=== PATIENT | female | born 1990 | race Caucasian/White ===

== ENCOUNTER 2021-11-13 18:54 | Emergency (ER) | payer OTHER, SELFPAY ==
--- NOTE | ~2021-11-13 | XR_ITS ---
EXAMINATION: XR chest 2V DATE: 11/14/2021 01:25 INDICATION: Syncope and dizziness TECHNIQUE: PA and lateral views of the chest were obtained. COMPARISON: Chest radiograph dated 11/01/08 FINDINGS: The lungs remain clear with no focal airspace opacities, pulmonary edema, pleural effusion or pneumot horax. The cardiomediastinal silhouette is normal. Visualized bones and soft tissues are unremarkable . IMPRESSION: 1. No acute cardiopulmonary disease. Reviewed, dictated and finalized at location A.
[2021-11-13 19:01] VITALS: BP 137/91; PULSE 106; RESP 20; TEMP 37.4; O2SAT 100
--- NOTE | 2021-11-13 19:05 | ECG_ITS ---
Measurements Intervals [place] Rate: 103 P: 65 NC: 138 QRS: 5 QRSD: 94 T: 15 QT: 338 QTc: 443 Interpretive Statements SINUS TACHYCARDIA POSSIBLE LEFT ATRIAL ENLARGEMENT [-0.1mV P WAVE IN V1/V2] INCOMPLETE RIGHT BUNDLE BRANCH BLOCK [90+ ms QRS DURATION, TERMINAL R IN V1/V2, 40+ ms S IN I/aVL/V4/V5/V6] NONSPECIFIC T-WAVE ABNORMALITY BORDERLINE ECG ABNORMAL RHYTHM ECG NO PREVIOUS ECG AVAILABLE FOR COMPARISON Electronically Signed On 11-14-2021 14:57:33 CDT by Kevon Watson M.D.
[2021-11-13 19:40] LABS: Basophils Percent Auto 0.7 % (0.2-1.2); Eosinophils Absolute Auto 0.1 K/mm3 (0-0.3); Eosinophils Percent Auto 2.2 % (0-4.4); Hematocrit 43.9 % (37.0-47.0); Hemoglobin 14.9 g/dL (12.0-15.0); Immature Granulocyte Absolute 0.01 K/mm3 (0.00-0.031); Immature Granulocyte Percent A 0.2 % (0-0.5); Lymphocytes Absolute Auto 2.21 K/mm3 (0.9-3.2); Lymphocytes Percent Auto 40.2 % (18.3-44.2); Mean Corpuscular HGB Conc 33.9 g/dl (32-36); Mean Corpuscular Hemoglobin 31.4 pg (26-34); Mean Corpuscular Volume 92.6 fl (80-100); Mean Platelet Volume 9.8 fl (7.4-10.4); Monocytes Absolute Auto 0.5 K/mm3 (0.1-0.6); Monocytes Percent Auto 9.1 % (2.6-8.5); Neutrophils Absolute Auto 2.6 K/mm3 (1.3-6.7); Neutrophils Percent Auto 47.6 % (45.5-73.1); Platelet Count Result 340 k/mm3 (150-375); Red Blood Count 4.74 M/mm3 (4.2-5.4); Red Cell Distribution Width 13.2 % (11.5-14.5); White Blood Count 5.5 K/mm3 (4.5-10.0)
[2021-11-13 19:51] LABS: Alanine Aminotransferase 17 U/L (6-35); Albumin Level 4.9 g/dL (3.5-5.1); Alkaline Phosphatase 62 U/L (38-126); Anion Gap 16 mmol/L (8-16); Aspartate Amino Transferase 22 U/L (14-36); Bilirubin,Total 0.5 mg/dL (0.2-1.3); Blood Urea Nitrogen 11 mg/dL (7-17); Calcium 9.7 mg/dL (8.4-10.2); Carbon Dioxide 25 mmol/L (22-30); Chloride 101 mmol/L (98-107); Estimated CRCL calculation 81 ml/min; Estimated Glomerular Filt Rate > 60; Glucose 99 mg/dL (65-110); Potassium 3.5 mmol/L (3.4-5.0); Sodium 142 mmol/L (137-145)
[2021-11-14] VITALS (13 sets, daily range): BP systolic 117–138; BP diastolic 80–99; PULSE 60–105; RESP 13–37; O2SAT 100
--- NOTE | 2021-11-14 01:04 | ED.DIZZY ---
HPI - Dizziness General Chief Complaint: Syncope <Jerri Cardoza PA-C - Last Filed: 11/14/21 03:23> Stated Complaint: Lightheaded, Heart Pounding <Jerri Cardoza PA-C - Last Filed: 11/14/21 03:23> Time Seen by Provider: 11/14/21 00:58 <Jerri Cardoza PA-C - Last Filed: 11/14/21 03:23> Source: patient <Jerri Cardoza PA-C - Last Filed: 11/14/21 03:23> Mode of arrival: ambulatory <Jerri Cardoza PA-C - Last Filed: 11/14/21 03:23> Limitations: no limitations <Jerri Cardoza PA-C - Last Filed: 11/14/21 03:23> History of Present Illness HPI Narrative: This is a 31 year old female that presents to the ER for a syncopal episode over the weekend. Reports [place] out [place] the [place]. Reports she started to feel like her heart was racing, she had tingling in her hands and felt lightheaded. She was able to lower herself to seated position. She had another similar episode with blood draw in the ED tonight. Does report some shortness of breath. Denies fever, chest pain, lower extremity edema, or recent travel or surgery. <Jerri Cardoza PA-C - Last Filed: 11/14/21 03:23> Review of Systems Review of Systems: CONSTITUTIONAL: Denies fever GASTROINTESTINAL: Denies vomiting NEUROLOGIC: Denies numbness, or weakness. PSYCHIATRIC: Reports anxiety <Jerri Cardoza PA-C - Last Filed: 11/14/21 03:23> All systems reviewed & are unremarkable except as noted in HPI and below <Jerri Cardoza PA-C - Last Filed: 11/14/21 03:23> [facility] Past Medical History Medical History: Medical History (Updated 11/14/21 @ 02:55 by Jerri Cardoza PA-C) History of ADHD History of anxiety <Jerri Cardoza PA-C - Last Filed: 11/14/21 03:23> Social History Social History: Social History (Updated 11/14/21 @ 01:07 by Jerri Cardoza PA-C) Smoking status: Never smoker Alcohol intake: current Substance use: current Substance use type: marijuana <Jerri Cardoza PA-C - Last Filed: 11/14/21 03:23> Exam Narrative: GENERAL: Well-appearing, well-nourished, and in no acute distress. HEAD: Normocephalic, atraumatic. EYES: PERRLA and EOMI. ENT: Nares clear, no rhinorrhea or epistaxis. Mucous membranes moist. Oropharynx without tonsillar hypertrophy exudate or other lesions. Bilateral TMs pearly thomas non-bulging NECK: Supple. No adenopathy or masses. CHEST: Clear to auscultation. No respiratory distress. No wheezes rales or rhonchi HEART: Regular rate and rhythm. No murmur heard. Normal peripheral pulses. EXTREMITIES: Normal range of motion. No edema. SKIN: Warm, dry, no rash. NEURO: No focal deficits. Alert and oriented x3. Cranial nerves II through XII grossly intact PSYCH: Normal mood and affect <Jerri Cardoza PA-C - Last Filed: 11/14/21 03:23> Course STAFF ANTISUBMARINE OFFICER/PA Physician Supervision For this patient encounter, I reviewed the STAFF ANTISUBMARINE OFFICER or PA documentation, treatment plan, and medical decision making <Jamison Everett MD - Last Filed: 11/14/21 03:58> Vital Signs Vital signs: Vital Signs Temperature 99.3 F 11/13/21 19:01 Pulse Rate 106 H 11/13/21 19:01 Respiratory Rate 20 11/13/21 19:01 Blood Pressure 137/91 H 11/13/21 19:01 Pulse Oximetry 100 11/13/21 19:01 Oxygen Delivery Room Air 11/13/21 19:01 Temperature 99.3 F 11/13/21 19:01 Pulse Rate 66 11/14/21 03:16 Respiratory Rate 15 11/14/21 03:16 Blood Pressure 133/88 11/14/21 03:16 Pulse Oximetry 100 11/14/21 03:16 Oxygen Delivery Room Air 11/14/21 02:07 <Jerri Cardoza PA-C - Last Filed: 11/14/21 03:23> Vital Signs Temperature 99.3 F 11/13/21 19:01 Pulse Rate 106 H 10/04/22 19:01 Respiratory Rate 20 11/13/21 19:01 Blood Pressure 137/91 H 11/13/21 19:01 Pulse Oximetry 100 11/13/21 19:01 Oxygen Delivery Room Air 11/13/21 19:01 Temperature 99.3 F 11/13/21 19:01 Pulse Rate 66 11/14/21 03:16 Respiratory Rate 15 11/14/21 03:16 Blood Pressure 133/
[2021-11-14 01:30] LABS: Troponin I < 0.012 ng/mL (0.000-0.034)
[2021-11-14 02:11] LABS: INR 1.2; Prothrombin Time 14.4 Seconds (11.1-14.7)
[2021-11-14 02:12] LABS: Partial Thromboplastin Time 33.9 SECONDS (22.3-36.8)
[2021-11-14 02:14] LABS: D Dimer < 0.27 ug/mL (<0.48)
[2021-11-14] MEDS: SODIUM CHLORIDE 0.9% IV 1,000 ML 999 ML IV CONT (02:37)
--- NOTE | 2021-11-22 08:30 | PC.NURSE ---
LATE ENTRY This note is being entered to document information to the patient's record. The following information was omitted on [11/14/21], by [real mandel] NS infused with zero left container.
== END 2021-11-14 03:46 | disposition home or self-care (01) ==
PROVIDERS: Physician Assistant; Emergency Provider Emergency Medicine
DX: R55 Syncope and collapse (principal)
CPT/HCPCS: 36415; 71046; 80053; 81025; 84484; 85025; 85380; 85610; 85730; 93005; 96360; 99284; J7030

== ENCOUNTER 2022-05-16 12:32 | Outpatient (CLI) | payer OTHER, SELFPAY ==
--- NOTE | ~2022-05-16 | US_ITS ---
US breast BI limited INDICATION: Bilateral breast pain. TECHNIQUE: Dedicated complete bilateral breast ultrasound including all 4 quadrants in the subareolar locations COMPARISON: Ultrasound dated 01/02/2015 FINDINGS: Right breast: At 9:00, 9 cm from the nipple there is a 7 mm cyst. No other suspicious solid or cystic masses are identified in the right breast. Left breast: Normal heterogeneous echotexture without focal solid or cystic mass. IMPRESSION: 1: No suspicious abnormalities in either breast by ultrasound to suggest malignancy. Benign finding. BI-RADS CATEGORY 2 - BENIGN FINDINGS Reviewed, dictated and finalized at location A. IMPRESSION: 1: No suspicious abnormalities in either breast by ultrasound to suggest malign neymar. Benign finding. BI-RADS CATEGORY 2 - BENIGN FINDINGS
== END 2022-05-16 12:33 | disposition home or self-care (01) ==
DX: O92.29 Other disorders of breast associated with pregnancy and the puerperium (principal); Z3A.00 Weeks of gestation of pregnancy not specified
CPT/HCPCS: 76642

== ENCOUNTER 2022-07-01 11:27 | Emergency (ER) | payer OTHER, SELFPAY ==
[2022-07-01] VITALS (30 sets, daily range): BP systolic 74–113; BP diastolic 49–71; PULSE 46–90; RESP 13–26; TEMP 36.4; O2SAT 87–100
--- NOTE | 2022-07-01 11:31 | ECG_ITS ---
Measurements Intervals [place] Rate: 74 P: ME: 0 QRS: 13 QRSD: 93 T: -1 QT: 412 QTc: 459 Interpretive Statements SINUS RHYTHM WITH MARKED SINUS ARRHYTHMIA INCOMPLETE RIGHT BUNDLE BRANCH BLOCK LOW QRS VOLTAGE IN PRECORDIAL LEADS BORDERLINE ECG COMPARED TO ECG 11/13/2021 19:25:25 SINUS RHYTHM NOW PRESENT Electronically Signed On 07-01-2022 11:38:06 CDT by Desmond oWodruff D.O.
[2022-07-01 11:46] LABS: Basophils Percent Auto 0.4 % (0.2-1.2); Eosinophils Absolute Auto 0.1 K/mm3 (0-0.3); Eosinophils Percent Auto 1.8 % (0-4.4); Hemoglobin 10.9 g/dL (12.0-15.0); Immature Granulocyte Absolute 0.01 K/mm3 (0.00-0.031); Immature Granulocyte Percent A 0.2 % (0-0.5); Lymphocytes Percent Auto 22.3 % (18.3-44.2); Mean Corpuscular HGB Conc 34.1 g/dl (32-36); Mean Corpuscular Hemoglobin 31.7 pg (26-34); Mean Platelet Volume 9.8 fl (7.4-10.4); Monocytes Absolute Auto 0.4 K/mm3 (0.1-0.6); Monocytes Percent Auto 7.3 % (2.6-8.5); Neutrophils Absolute Auto 3.4 K/mm3 (1.3-6.7); Platelet Count Result 232 k/mm3 (150-375); Red Blood Count 3.44 M/mm3 (4.2-5.4); Red Cell Distribution Width 13.2 % (11.5-14.5); White Blood Count 4.9 K/mm3 (4.5-10.0)
[2022-07-01 11:56] LABS: Alanine Aminotransferase 15 U/L (6-35); Albumin Level 3.6 g/dL (3.5-5.1); Alkaline Phosphatase 48 U/L (38-126); Anion Gap 4 mmol/L (8-16); Aspartate Amino Transferase 20 U/L (14-36); Bilirubin,Total 0.4 mg/dL (0.2-1.3); Blood Urea Nitrogen 9 mg/dL (7-17); Calcium 8.3 mg/dL (8.4-10.2); Carbon Dioxide 26 mmol/L (22-30); Chloride 106 mmol/L (98-107); Estimated Glomerular Filt Rate > 60; Glucose 84 mg/dL (65-110); Potassium 3.4 mmol/L (3.4-5.0); Sodium 136 mmol/L (137-145)
--- NOTE | 2022-07-01 14:34 | ED.DIZZY ---
HPI - Dizziness General Chief Complaint: Dizziness Stated Complaint: dizzy, 24 weeks Time Seen by Provider: 07/01/22 13:39 Source: patient Mode of arrival: EMS Limitations: no limitations History of Present Illness HPI Narrative: Patient is a 32 y/o female, currently 24 weeks gestation, who presents to the ED via EMS with c/o dizziness. Patient reports she was vacuuming out her car this afternoon when she began feeling dizzy. She describes the dizziness as feeling lightheaded and also as though the room was slightly spinning. She felt like she was going to pass out and began having tunnel vision and muffled hearing. She called a friend for help who then called for EMS. Patient did not pass out. She does report a history of syncope twice last year. She states she does not feel dizzy sitting currently, but it does recur when she sits upright in the bed. She denies any chest pain, shortness of breath, abdominal pain, vaginal bleeding, ear pain, fevers, nausea, vomiting, focal weakness, confusion. Related Data Allergies Allergy/AdvReac Type Severity Reaction Status Date / Time No Known Allergies Allergy Verified 07/01/22 13:38 Review of Systems Review of Systems: CONSTITUTIONAL: Denies fever, chills, or sweats. EYES: See HPI. ENT: See HPI. CARDIOVASCULAR: Denies chest pain. RESPIRATORY: Denies dyspnea. GASTROINTESTINAL: Denies abdominal pain, nausea, vomiting, or diarrhea. GENITOURINARY: Denies dysuria or hematuria. NEUROLOGIC: See HPI. All systems reviewed & are unremarkable except as noted in HPI and below PMFSH Past Medical History Medical History History of ADHD History of anxiety Surgical History Surgical History No pertinent past surgical history Social History Social History Smoking status: Never smoker Alcohol intake: current Substance use: current Substance use type: marijuana Exam Narrative: GENERAL: Well appearing, well-nourished, non-toxic, in no acute distress. HEAD: Normocephalic, atraumatic. EYES: PERRLA/EOMI, conjunctiva clear. No nystagmus. ENT: TMs normal, no erythema or bulging. No cerumen impaction. Mucous membranes moist. NECK: Supple. No adenopathy, no masses. RESPIRATORY: Airway patent, respirations nonlabored. Clear to auscultation bilaterally, no rales, rhonchi, wheezing. CARDIOVASCULAR: Bradycardic with regular rhythm without murmurs, rubs, or gallops. Radial pulses 2+ and equal bilaterally. ABDOMINAL: Soft, uterus gravid, nontender, nondistended, no hepatosplenomegaly. Normoactive BS. MUSCULOSKELETAL: Moves all extremities. Strength/ROM intact without gross deformities. SKIN: Warm, dry, normal color. No rashes. NEURO: A&O X3. Speech clear. Cranial nerves II-XII grossly intact. Steady gait. No ataxic movements. No focal deficits. PSYCHIATRIC: Appropriate mood and affect. Normal interaction. Course Vital Signs Vital signs: Vital Signs Temperature 97.5 F L 07/01/22 11:55 Pulse Rate 80 07/01/22 11:55 Respiratory Rate 18 07/01/22 11:55 Blood Pressure 111/59 L 07/01/22 11:55 Pulse Oximetry 100 07/01/22 11:55 Oxygen Delivery Room Air 07/01/22 11:55 Temperature 97.5 F L 07/01/22 11:55 Pulse Rate 63 07/01/22 17:47 Respiratory Rate 18 07/01/22 17:47 Blood Pressure 97/52 L 07/01/22 17:47 Pulse Oximetry 99 07/01/22 17:47 Oxygen Delivery Room Air 07/01/22 11:55 MDM - Dizziness MDM Narrative Medical decision making narrative: Patient presented to ED with near syncopal episode. No LOC. Currently , 24 weeks. VSS upon arrival. Normal neurologic exam. No significant orthostatic hypotension by blood pressure, though heart rate did jump up and patient with reproducible dizziness with position changes. Fluids started. FHT reassu
[2022-07-01] MEDS: SODIUM CHLORIDE 0.9% IV 1,000 ML 999 ML IV CONT ×2 (14:57→15:52)
[2022-07-01] MEDS: MECLIZINE HCL 25 MG TABLET PO (14:57)
[2022-07-01 16:19] LABS: Appearance Urine Clear (Clear); Bilirubin Urine Negative (Negative); Blood Urine Negative (Negative); Color Urine Yellow (Yellow); Glucose Urine UA Negative (Negative); Ketones Urine 3+ mg/dL (Negative); Leukocyte Esterase Ur Negative LEU/UL (Negative); Nitrate Urine Negative (Negative); Protein Urine Negative (Negative); Specific Grav Ur 1.024 (1.001-1.035); Urobilinogen Urine 0.2 mg/dL (<2.0); pH Urine 5.5 (5.0-9.0)
[2022-07-01 16:23] LABS: Add Urine Microscopic? NO
== END 2022-07-01 17:48 | disposition home or self-care (01) ==
PROVIDERS: Emergency Medicine; Emergency Provider Physician Assistant
DX: R55 Syncope and collapse (principal); O99.282 Endocrine, nutritional and metabolic diseases complicating pregnancy, second trimester; E86.0 Dehydration; Z3A.24 24 weeks gestation of pregnancy
CPT/HCPCS: 36415; 80053; 81003; 85025; 93005; 96360; 96361; 99284; A9270; J7030